=== PATIENT | female | born 1985 | race Caucasian/White ===

== ENCOUNTER 2016-11-05 10:47 | Emergency (ER) | payer OTHER ==
[~2016-11-05] VITALS: Ht 160 cm; Wt 75.9 kg
[2016-11-05 10:57] VITALS: BP 114/75; PULSE 89; RESP 15; O2SAT 99
--- NOTE | 2016-11-05 12:04 | ED.REPORT ---
HPI-General Illness Date of Service Nov 05, 2016 ED Provider: Dr. Nick Gongora MD A 30 year old female presents to the ED complaining of bilateral flank pain that began yesterday. Patient believes her symptoms feel like a "kidney infection". She reports experiencing similar pain during her previous episodes of UTI. Associated symptoms include increased urinary urgency, mild subjective fever and chills. Patient's last menstrual cycle was one month ago and she currently has an IUD. She denies dysuria, nausea, vomiting or abnormal vaginal discharge. Nursing Notes Stated Complaint: LWR BACK PAIN Chief Complaint: Back Pain or Injury Nursing Notes Reviewed: Yes Allergies: Coded Allergies: ciprofloxacin (Verified Adverse Reaction, Unknown, Nausea,Vomiting, ) PT DOES NOT KNOW REACTION Scheduled Sulfamethoxazole/Trimeth 800-160 mg (Bactrim DS) 1 Each Tablet 1 TABLET PO BID General Time Seen by MD: 12:02 Chief Complaint Other (Bilateral Flank Pain) Hx Obtained From: Patient Arrived By: Walk-in Sudden in Onset?: No Onset Occurred: Yesterday Symptom Duration: Since onset Pertinent Negative: Pt denies other symptoms Recent Healthcare: No recent doctor visit, No recent hospitalization Past Medical History Past Medical History Pneumothorax UTI; otherwise healthy Past Surgical History none reported Smoking History Current Every Day Smoker Social History Alcohol Use: Denies alcohol use Drug Use: THC, Other Other Social History: Good social support, Local resident Ambulatory Status Independent Review of Systems Full Review of Systems Constitutional: Reports: Chills, Fever Respiratory: Denies: Shortness of breath Cardiovascular: Denies: Chest pain GI: Denies: Nausea, Vomiting Female: Reports: Flank pain (bilateral ), Urinary urgency, Urination increased Neurologic: Denies: Change LOC Complete sys rev & neg: except as marked. Physical Exam Vital Signs Vital Signs Date Time Temp Pulse Resp B/P Pulse Ox O2 Delivery O2 Flow Rate FiO2 11/05/16 10:57 36.8 89 15 114/75 99 Initial VS: Reviewed Head / Eyes: Atraumatic, Normocephalic, PERRL Neck: Supple, Non-tender, Full range of motion Respiratory: Breath sounds normal, Clear to auscultation, No respiratory distress Cardiovascular: Regular rate & rhythm, Heart sounds normal, Intact distal pulses Abdomen / GI: Soft, Non-tender, No guarding, No rebound, No distention Extremities: Vascular intact, Neuro intact, No swelling, No tenderness Skin: Warm, Dry, No cyanosis Neurologic: Alert, Oriented, Nonfocal Psychiatric: Mood/affect normal, Behavior normal, Normal thought content General/Constitutional: Awake, Alert Back: Atraumatic Flank / Spine / Paraspinal: Positive: Flank tender L, Flank tender R Interpretation & Diagnostics Lab Results Interpretation Test 11/05/16 12:00 Urine Color Yellow (YELLOW) Urine Appearance Hazy (CLEAR,HAZY) Urine pH 6.0 (5.0-8.0) Urine Specific [place] 1.030 (1.003-1.035) Urine Protein Negativemg/dL (NEG,TRACE) Urine Glucose (UA) Negativemg/dL (NEGATIVE) Urine Ketones Negativemg/dL (NEGATIVE) Urine Occult Blood Trace (NEGATIVE) Urine Nitrite Positive (NEGATIVE) Urine Bilirubin Negative (NEGATIVE) Urine Urobilinogen Normalmg/dL (NORMAL) Urine Leukocyte Esterase Negative (NEGATIVE) Urine RBC 0-2/hpf (0-2) Urine WBC 0-5/hpf (0-5) Urine Epithelial Cells Occasional/hpf (NONE-MOD) Urine Crystals None seen (NONE SEEN) Urine Bacteria Many/hpf (NONE-FEW) Urine Hyaline Casts None/lpf (NONE) Urine Granular Casts None seen (NONE SEEN) Urine Waxy Casts None seen (NONE SEEN) Urine Red Blood Cell Casts None seen (NONE SEEN) Urine White Blood Cell Casts None seen (NONE SEEN) Urine Mucus None seen (None Seen) Urine Trichomonas None seen (NONE SEEN) Urine Yeast None (NONE SEEN) Urinalysis Comment None Urine Culture Reflexed Indicated Re-Eval/Medical Decision Med Decision/Clinical Course The patient is an 30 year old female presents to the ED complaining of bilateral flank pain that began yesterday. Patient believes her symptoms feel like a "kidney infection". UA was notable as below: urine hazy in appearance nitrite positive leukocyte esterase negative occasional epithelial many bacteria The patient's overall presentation is most consistent with UTI/pyelonephritis. At this time she is afebrile and nontoxic appearing. She is tolerating PO. Urine test is negative. There are no findings or history suggestive of pelvic inflammatory disease. Her abdominal examination is benign and there are no findings of an acute surgical abdominal process. She was prescribed a 7 day course of Bactrim and her urine was sent for culture. Follow-up and return precautions were reviewed in detail and she was discharged in good condition. Time of Eval: 14:03 Patient Status: Condition improved Re-Evaluation/Progress Note: Patient is rechecked. She is informed of her lab results. She agrees with the treatment plan to discharge. Counseled Regarding: Diagnosis, Lab results, Need for follow-up, When/why to return to ED Discharge & Departure Primary Impression: Urinary tract infection Urinary tract infection type: site unspecified Hematuria presence: without hematuria Qualified Code: N39.0 - Urinary tract infection, site not specified Additional Impressions: Pyelonephritis Bilateral flank pain Disposition: Home Discharge Condition All VS Reviewed: Yes Condition: Stable Patient Instructions: Urinary Tract Infection in Women (ED) Additional Instructions: Thank you for seeking care at emergency room. It is difficult for us to make definitive diagnoses in the ED but we believe that you are experiencing urinary tract infection. Our primary goal today in the ED was to evaluate you for any life-threatening conditions. Your evaluation was reassuring. You will be discharged with a prescription for antibiotics. You should follow-up with your primary doctor in the next week. You should return to the ED immediately if you develop wprse symptoms, fevers, vomiting, cough, shortness of breath, chest pain, lightheadedness, weakness or any other concerning signs or symptoms. Thank you for letting us partake in your care today. Referrals: NOPCP (PCP) [facility] Scribe Attestation Portions of this note were transcribed by Lainey Chacko. I, Dr. Gongora personally performed the history, physical exam and medical decision-making; I reviewed and confirmed the accuracy of the information in the transcribed note. Signed by: Lainey Chacko, 11/05/16, 1410. Nick Gongora MD Nov 05, 2016 12:04 LAINEY CHACKO Nov 05, 2016 13:57
[2016-11-05 13:47] LABS: APPEARANCE,URINE HAZY (CLEAR,HAZY); COLOR,URINE YELLOW (YELLOW); OCCULT BLOOD,URINE TRACE (NEGATIVE); UROBILINOGEN,URINE NORMAL (NORMAL)
[2016-11-05] MEDS ORDERED: SULF1TAB7 PO (14:08)
== END 2016-11-05 14:09 | disposition home or self-care (01) ==
LOC: SED 10:47
DX: N39.0 Urinary tract infection, site not specified (principal); N12 Tubulo-interstitial nephritis, not specified as acute or chronic; B96.20 Unspecified Escherichia coli [E. coli] as the cause of diseases classified elsewhere; F17.200 Nicotine dependence, unspecified, uncomplicated; Z88.1 Allergy status to other antibiotic agents

== ENCOUNTER 2017-01-18 21:47 | Emergency (ER) | payer OTHER ==
[~2017-01-18] VITALS: Ht 160 cm; Wt 79.5 kg
[~2017-01-18 21:47] MED LIST: SULF1TAB7 PO
[2017-01-18 21:50] VITALS: BP 129/82; PULSE 112; RESP 18; O2SAT 97
[2017-01-18 22:46] LABS: APPEARANCE,URINE CLOUDY (CLEAR,HAZY); COLOR,URINE YELLOW (YELLOW); OCCULT BLOOD,URINE TRACE (NEGATIVE)
[2017-01-18 22:47] LABS: UROBILINOGEN,URINE NORMAL (NORMAL)
--- NOTE | 2017-01-18 23:05 | ED.REPORT ---
HPI-General Illness Date of Service Jan 18, 2017 ED Provider: Dr. Georges Clemons M.D. A 31 year old female with a history of UTI, pyelonephritis, migraines, and pneumothorax presents to the ED with bilateral flank pain onset yesterday. The patient also reports fever (38.3 in ED), nausea, and a headache similar to previous migraines. She denies vomiting or other symptoms. The patient has had similar symptoms in the past associated with pyelonephritis. Nursing Notes Stated Complaint: MIGRAINE,BACK PAIN,NAUSEA Chief Complaint: Headache Nursing Notes Reviewed: Yes Allergies: Coded Allergies: ciprofloxacin (Verified Adverse Reaction, Unknown, Nausea,Vomiting, ) PT DOES NOT KNOW REACTION Scheduled Cefuroxime Axetil (Cefuroxime) 500 Mg Tablet 500 MG PO BID Promethazine HCl (Phenergan) 25 Mg Supp.rect 25 MG RC TID Sulfamethoxazole/Trimeth 800-160 mg (Bactrim DS) 1 Each Tablet 1 TABLET PO BID Scheduled PRN Naproxen (Naprosyn) 500 Mg Tablet 500 MG PO BID PRN PRN For Pain Ondansetron ODT (Ondansetron ODT) 8 Mg Tab.rapdis 8 MG PO QID PRN PRN For Nausea General Time Seen by MD: 23:04 Chief Complaint Other (Bilateral Flank Pain) Hx Obtained From: Patient Arrived By: Walk-in Sudden in Onset?: No Onset Occurred: Yesterday Symptom Duration: Since onset Location: : Back (Bilateral Flanks): Head Quality: Painful Severity: Current: Moderate Severity: Maximum: Moderate Associated with: Reports: Fever, Headache, Nausea, Denies: Vomiting Pertinent Negative: Relieved by nothing Recent Healthcare: No recent doctor visit Similar Sx Previous: Yes Past Medical History Past Medical History Pneumothorax UTI, pyelonephritis Migraines Past Surgical History none reported Smoking History Current Every Day Smoker Social History Alcohol Use: Denies alcohol use Drug Use: THC, Other Other Social History: Good social support, Local resident Ambulatory Status Independent Review of Systems + Bilateral flank pain Full Review of Systems Constitutional: Reports: Fever (38.3 in ED) Respiratory: Denies: Non-productive cough, Shortness of breath GI: Reports: Nausea, Denies: Vomiting Neurologic: Reports: Headache Complete sys rev & neg: except as marked. Physical Exam Vital Signs Vital Signs Date Time Temp Pulse Resp B/P Pulse Ox O2 Delivery O2 Flow Rate FiO2 01/19/17 00:55 36.6 69 17 119/67 99 Room Air 01/18/17 21:50 38.3 112 18 129/82 97 Room Air Initial VS: Reviewed Head / Eyes: Atraumatic, Normocephalic ENT: Conjunctiva normal, No scleral icterus Neck: Supple, Full range of motion Skin: Warm, Dry, No cyanosis Psychiatric: Mood/affect normal, Behavior normal, Normal thought content General/Constitutional: Awake, Alert, No acute distress Abdomen: Soft, Non-tender Back: Full range of motion Flank / Spine / Paraspinal: Positive: Flank tender bilateral Neurologic: Oriented X3, Speech NL, No motor deficits, No sensory deficits Interpretation & Diagnostics URINE : Negative URINE DIPSTICK: 1.010 sp gravity 8 pH ++ Leukocyte Esterase Positive Nitrite Trace Protein Normal Glucose Normal Urobilinogen Trace Blood Otherwise Negative Lab Results Interpretation Result Diagram: 01/18/17 2342 01/18/17 2342 Test 01/18/17 22:30 01/18/17 23:42 Urine Color Yellow (YELLOW) Urine Appearance Cloudy (CLEAR,HAZY) Urine pH 7.0 (5.0-8.0) Urine Specific [place] 1.020 (1.003-1.035) Urine Protein Negativemg/dL (NEG,TRACE) Urine Glucose (UA) Negativemg/dL (NEGATIVE) Urine Ketones Negativemg/dL (NEGATIVE) Urine Occult Blood Trace (NEGATIVE) Urine Nitrite Positive (NEGATIVE) Urine Bilirubin Negative (NEGATIVE) Urine Urobilinogen Normalmg/dL (NORMAL) Urine Leukocyte Esterase Trace (NEGATIVE) Urine RBC 0-2/hpf (0-2) Urine WBC >50/hpf (0-5) Urine Epithelial Cells Moderate/hpf (NONE-MOD) Urine Crystals None seen (NONE SEEN) Urine Bacteria Many/hpf (NONE-FEW) Urine Hyaline Casts None/lpf (NONE) Urine Granular Casts None seen (NONE SEEN) Urine Waxy Casts None seen (NONE SEEN) Urine Red Blood Cell Casts None seen (NONE SEEN) Urine White Blood Cell Casts None seen (NONE SEEN) Urine Mucus Present (None Seen) Urine Trichomonas None seen (NONE SEEN) Urine Yeast None (NONE SEEN) Urinalysis Comment None Urine Culture Reflexed Indicated White Blood Count 13.9th/mm3 (3.8-10.1) Red Blood Count 4.32mil/mm3 (3.90-5.20) Hemoglobin 12.8g/dL (12.0-15.6) Hematocrit 38.2% (35.0-46.0) Mean Corpuscular Volume 88.4fL (81-100) Mean Corpuscular Hemoglobin 29.6pg (27.0-35.0) Mean Corpuscular Hemoglobin Concent 33.5% (32.0-37.0) Red Cell Distribution Width 12.8% (12.3-15.4) Platelet Count 291bil/L (150-400) Neutrophils (%) (Auto) 84.0% (40-74) Lymphocytes (%) (Auto) 7.4% (14-46) Monocytes (%) (Auto) 8.1% (4-12) Eosinophils (%) (Auto) 0.2% (0-5) Basophils (%) (Auto) 0.1% (0-3) Sodium Level 135mEq/L (134-144) Potassium Level 4.3mEq/L (3.5-5.2) Chloride Level 98mEq/L (97-108) Carbon Dioxide Level 22mmol/L (18-29) Blood Urea Nitrogen 10mg/dL (6-20) Creatinine 0.55mg/dL (0.57-1.00) Estimat Glomerular Filtration Rate 183mL/min (>59) Glucose Level 135mg/dL (60-99) Calcium Level 8.2mg/dL (8.5-10.1) Magnesium Level 1.9mg/dL (1.6-2.6) Total Bilirubin 0.2mg/dL (0.0-1.2) Aspartate Amino Transf (AST/SGOT) 15U/L (0-50) Alanine Aminotransferase (ALT/SGPT) 17U/L (0-32) Alkaline Phosphatase 60U/L (25-150) Total Protein 6.7g/dL (6.4-8.4) Albumin 4.0g/dL (3.4-5.0) Hold [place] Top Tube Received (Received) Re-Eval/Medical Decision Med Decision/Clinical Course 31-year-old with flank pain and gross urinary tract infection. She has an incidental migraine in the setting of her acute illness. Hydrated here and begun with Rocephin, was Ceftin to follow. Improved after fluids and migraine meds. Discharged in stable condition. Source of Hx: Old records Time of Eval: 00:42 Patient Status: Condition improved Re-Evaluation/Progress Note: Discussed with patient lab results, diagnosis, and plan for discharge. Follow-up and return to the ER instructions given. Patient agrees with plan for care and all questions were addressed. Counseled Regarding: Diagnosis, Lab results, Need for follow-up, When/why to return to ED Discharge & Departure Shift Change Sign-Out Response to Therapy: Improved Primary Impression: Pyelonephritis Additional Impression: Migraine Migraine type: without aura Status migrainosus presence: without status migrainosus Intractability: not intractable Qualified Code: G43.009 - Migraine without aura, not intractable, without status migrainosus Disposition: Home Discharge Condition All VS Reviewed: Yes Condition: Improved Patient Instructions: Acute Pyelonephritis (ED), Migraine Headache (ED) Additional Instructions: Drink plenty of fluids and stay well-hydrated. Ceftin twice daily. Follow-up with your physician in the office. Return if any immediate issues over the weekend, particularly worsening fever or pain despite treatment. Zofran if needed for nausea Phenergan suppository if needed for nausea and headache. Referrals: NOPCP (PCP) [facility] [place] Attestation Portions of this note were transcribed by Adriana Clayton. I, Dr. Clemons, personally performed the history, physical exam, and medical decision-making; I reviewed and confirmed the accuracy of the information in the transcribed note. Signed by: Babs Busch, 01/19/2017, 01:40 copies to: [facility] Georges Clemons MD Jan 18, 2017 23:05 ADRIANA CLAYTON Jan 18, 2017 23:12
[2017-01-18] MEDS ORDERED: 0.9% Sodium Chloride 1,000 ML IV SCH (23:10)
[2017-01-18] MEDS ORDERED: Ondansetron 2 mg/mL 2 mL Inj IVPUSH ONE (23:10)
[2017-01-18] MEDS ORDERED: cefTRIAXone Inj 2,000 MG in Dextrose 5% Minibag Plus 50 ML IV ONE (23:10)
[2017-01-18 23:50] LABS: BASOPHILS % (AUTO) 0.1 % (0-3); EOSINOPHILS % (AUTO) 0.2 % (0-5); MONOCYTES % (AUTO) 8.1 % (4-12); Mean Corpuscular Hemoglobin 29.6 pg (27.0-35.0); Mean Corpuscular Volume 88.4 fL (81-100); Platelet Count 291 bil/L (150-400)
[2017-01-19] MEDS ORDERED: ONDA8TAB10 PO (00:01)
[2017-01-19] MEDS ORDERED: PROM25SU46 RC (00:01)
[2017-01-19 00:20] LABS: Magnesium 1.9 mg/dL (1.6-2.6)
[2017-01-19 00:55] VITALS: BP 119/67; PULSE 69; RESP 17; O2SAT 99
[2017-01-19] MEDS ORDERED: NAPR500T PO (00:56)
[2017-01-19] MEDS ORDERED: CEFU500T61 PO (00:56)
== END 2017-01-19 00:59 | disposition home or self-care (01) ==
LOC: SED 21:47
DX: N10 Acute pyelonephritis (principal); G43.009 Migraine without aura, not intractable, without status migrainosus; B96.20 Unspecified Escherichia coli [E. coli] as the cause of diseases classified elsewhere; F17.200 Nicotine dependence, unspecified, uncomplicated; Z88.1 Allergy status to other antibiotic agents
CPT/HCPCS: 36415; 80053; 81000; 81025; 83735; 85025; 87077; 87086; 87088; 87186; 96361; 96365; 96375; 99285; J0696; J1885; J2405; J7030

== ENCOUNTER 2017-01-19 12:55 | Inpatient (IN) | payer OTHER ==
[~2017-01-19] VITALS: Ht 160 cm; Wt 73.5 kg
[~2017-01-19 12:55] MED LIST changes: +CEFU500T61 PO; +NAPR500T PO; +ONDA8TAB10 PO; +PROM25SU46 RC
[2017-01-19 13:08] VITALS: BP 118/71; PULSE 122; RESP 20; O2SAT 96
[2017-01-19] MEDS ORDERED: Ondansetron 2 mg/mL 2 mL Inj IVPUSH ONE (13:35)
[2017-01-19] MEDS ORDERED: cefTRIAXone Inj 2,000 MG in Dextrose 5% Minibag Plus 50 ML IV ONE (13:35)
--- NOTE | 2017-01-19 13:36 | ED.REPORT ---
HPI-Abd Pain F Under 40 Date of Service Jan 19, 2017 ED Provider: Zuhair Fernandes MD This is a 31 year old female with a history of pyelonephritis and migraines presenting to the emergency department complaining of abdominal pain that began 2 days ago. Associated with bilateral flank pain, nausea, and vomiting. Pt seen in the ED yesterday with similar presentation, received ceftriaxone and discharged with Ceftin. Diagnosed with pyelonephritis and also has positive e.coli cultures. She has had three doses of antibiotics so far. Denies cough, shortness of breath, diarrhea, or constipation at this time. Nursing Notes Stated Complaint: BAD KIDNEY INFECTION,STABBING PAIN IN STOMACH Chief Complaint: Female Abdominal Pain Nursing Notes Reviewed: Yes ([employer] not reconciled) Allergies: Coded Allergies: ciprofloxacin (Verified Adverse Reaction, Unknown, Nausea,Vomiting, ) PT DOES NOT KNOW REACTION Scheduled Cefuroxime Axetil (Cefuroxime) 500 Mg Tablet 500 MG PO BID Promethazine HCl (Phenergan) 25 Mg Supp.rect 25 MG RC TID Sulfamethoxazole/Trimeth 800-160 mg (Bactrim DS) 1 Each Tablet 1 TABLET PO BID Scheduled PRN Naproxen (Naprosyn) 500 Mg Tablet 500 MG PO BID PRN PRN For Pain Ondansetron ODT (Ondansetron ODT) 8 Mg Tab.rapdis 8 MG PO QID PRN PRN For Nausea General Time Seen by MD: 13:32 Chief Complaint Abdominal pain Hx Obtained From: Patient Arrived By: Walk-in Sudden in Onset?: Yes Onset Occurred: 2 days ago Symptom Duration: Since onset Location: : Diffuse Severity: Current: Moderate Pertinent Negative: Pt denies other symptoms Recent Healthcare: Recent doctor visit Similar Sx Previous: No Past Medical History Past Medical History Notes: Seen yesterday in ED dx w/pyelo - received Ceftriaxone, d/c on Ceftin cultures + E. Coli, Sens pending Past Medical History Pneumothorax h/o UTI, pyelonephritis Migraines Past Surgical History none reported Smoking History Current Every Day Smoker Social History Alcohol Use: Denies alcohol use Drug Use: THC, Other Other Social History: Good social support, Local resident Ambulatory Status Independent Review of Systems Constitutional: Reports: Chills, Denies: Fever GI: Reports: Abdominal pain, Nausea, Vomiting, Denies: Diarrhea, Hematemesis, Hematochezia Female: Reports: Flank pain Complete sys rev & neg: except as marked. Physical Exam Initial Vital Signs Vital Signs (First) Date Time Temp Pulse Resp B/P Pulse Ox O2 Delivery O2 Flow Rate FiO2 01/19/17 13:08 38.9 122 20 118/71 96 Room Air Initial VS: Reviewed Head / Eyes: Atraumatic, Normocephalic, PERRL ENT: Mucous membranes moist, Conjunctiva normal, No scleral icterus Neck: Supple, Non-tender, Full range of motion Extremities: Vascular intact, Neuro intact, No swelling, No tenderness Skin: Warm, Dry, No cyanosis Neurologic: Alert, Oriented, Nonfocal Psychiatric: Mood/affect normal, Behavior normal, Normal thought content General/Constitutional: Awake, Alert Respiratory / Chest: Breath sounds NL, Breath sounds = bilat, No respiratory distress, No rales, No rhonchi, No wheezing Tender Cardiovascular: Heart rate NL, Regular rhythm, Heart sounds NL, Peripheral circulation NL Tenderness/Guarding/Rebound: Positive: Tender diffuse Back: Full range of motion mangle tender cloth to palpation Interpretation & Diagnostics CT KUB IMPRESSION: 1. No renal stone or hydronephrosis. 2. Mild left perinephric stranding. 3. Moderate amount stool in colon. 4. Trace amount of free fluid is within physiocological limits. Dictated by: Yasmeen Baez M.D. on 01/19/2017 at 14:19 Approved by: Yasmeen Baez M.D. on 01/19/2017 at 14:25 Lab Results Interpretation Result Diagram: 01/19/17 1328 01/19/17 1328 Test 01/19/17 13:28 White Blood Count 20.9th/mm3 (3.8-10.1) Red Blood Count 4.58mil/mm3 (3.90-5.20) Hemoglobin 13.5g/dL (12.0-15.6) Hematocrit 40.6% (35.0-46.0) Mean Corpuscular Volume 88.6fL (81-100) Mean Corpuscular Hemoglobin 29.5pg (27.0-35.0) Mean Corpuscular Hemoglobin Concent 33.3% (32.0-37.0) Red Cell Distribution Width 13.0% (12.3-15.4) Platelet Count 290bil/L (150-400) Neutrophils (%) (Auto) 87.8% (40-74) Lymphocytes (%) (Auto) 4.3% (14-46) Monocytes (%) (Auto) 7.5% (4-12) Eosinophils (%) (Auto) 0% (0-5) Basophils (%) (Auto) 0.1% (0-3) Hold [place] Top Tube Received (Received) Sodium Level 131mEq/L (134-144) Potassium Level 3.9mEq/L (3.5-5.2) Chloride Level 94mEq/L (97-108) Carbon Dioxide Level 20mmol/L (18-29) Blood Urea Nitrogen 10mg/dL (6-20) Creatinine 0.61mg/dL (0.57-1.00) Estimat Glomerular Filtration Rate 163mL/min (>59) Glucose Level 143mg/dL (60-99) Lactic Acid Level 0.9mmol/L (0.4-2.0) Calcium Level 8.5mg/dL (8.5-10.1) Total Bilirubin 0.5mg/dL (0.0-1.2) Aspartate Amino Transf (AST/SGOT) 16U/L (0-50) Alanine Aminotransferase (ALT/SGPT) 18U/L (0-32) Alkaline Phosphatase 71U/L (25-150) Total Protein 7.3g/dL (6.4-8.4) Albumin 3.9g/dL (3.4-5.0) Hold [place] Top Tube Received (Received) Hold [place] Top Tube Received (Received) Lab Results Interpretation: CBC positive leukocytosis CMP normal Urine culture from yesterday positive greater 100,000 Escherichia coli, sensitivities pending Urine yesterday negative Re-Eval/Medical Decision Med Decision/Clinical Course This is a 31-year-old female seen yesterday in the emergency department with urinary symptoms concerning for pyelonephritis, dose of ceftriaxone discharge and Ceftin he now presents febrile, with worsening symptoms, nausea vomiting. Patient appears ill, tachycardic-but not hypotensive. She is diffuse pain everywhere does have bilateral CVA tenderness, reports she has pain reading around the abdomen which is a little bit different than her usual Jose. Cultures are positive for greater than 100,000 Escherichia coli, but sensitivities have not yet returned. Patient is taking Naprosyn just prior to arrival. Patient had IV placed, given aggressive fluids, repeat blood cultures are drawn and the patient overdosed on ceftriaxone. Given his been less than 24 hours, I do not think that we can count this is a true antibiotic failure yet-and culture should be returning shortly. Furthermore the patient's allergic to fluoroquinolones. To evaluate for the possibility of a stone given the rapid progression of symptoms and the atypical component of the pain-a CT KUB was obtained and was negative for stones, perinephric stranding consistent with Jose is present. The patient is being admitted for continued therapy. Source of Hx: Old records Re-Evaluation/Progress : Time of Eval: 14:08 Re-Evaluation/Progress Note: Plan for admission, all questions addressed Consultation : Referral / Consult Name: Sasha Barber MD Consulted With: Hospitalist Call Returned at: 14:08 Nursing Care Attendant: Accepts admit Differential Diagnosis: Positive: Pyelonephritis, Urinary tract infection, Negative: Abscess, Ectopic preg ruptured, Ectopic , Endometriosis, Esophageal rupture, Stab wound abdomen Counseled Regarding: Diagnosis, Lab results, Need for follow-up Discharge & Departure Primary Impression: Pyelonephritis Additional Impressions: Escherichia coli urinary tract infection Nausea & vomiting Vomiting type: unspecified Vomiting Intractability: unspecified Qualified Code: R11.2 - Nausea with vomiting, unspecified Disposition: ADMITTED TO HOSPITAL Discharge Condition All VS Reviewed: Yes Condition: Stable Referrals: NOPCP (PCP) Scribe Attestation Portions of this note were transcribed by Mike Pereira. I, Dr. Fernandes personally performed the history, physical exam and medical decision-making; I reviewed and confirmed the accuracy of the information in the transcribed note. Signed by: Mike Pereira. 01/19/2017, 15:00. Zuhair Fernandes MD Jan 19, 2017 13:36 MIKE PEREIRA Jan 19, 2017 13:44
[2017-01-19] MEDS ORDERED: 0.9% Sodium Chloride 1,000 ML IV ONE ×2 (13:40)
[2017-01-19 13:47] LABS: BASOPHILS % (AUTO) 0.1 % (0-3); EOSINOPHILS % (AUTO) 0 % (0-5); MONOCYTES % (AUTO) 7.5 % (4-12); Mean Corpuscular Hemoglobin 29.5 pg (27.0-35.0); Mean Corpuscular Volume 88.6 fL (81-100); NEUTROPHILS % (AUTO) 87.8 % (40-74); Platelet Count 290 bil/L (150-400)
[2017-01-19] MEDS: HYDROmorphone 0.5 mg/0.5 mL iSecure Syringe IVPUSH PRN ×2 (13:48→20:31)
--- NOTE | 2017-01-19 14:27 | DRSVH ---
PROCEDURE: CT KUB ([id number]) INDICATIONS: Flank pain, sepsis, abd pain ?stone TECHNIQUE: Noncontrast 5 mm thick sections acquired from the diaphragms to the symphysis. 5 mm thick coronal an d sagittal reformats were then performed. For radiation dose reduction, the following was used: aut omated exposure control, adjustment of mA and/or kV according to patient size. COMPARISON: [facility], CT, CT ABD PELVIS W CON, 01/13/2016, 19:45. FINDINGS: Image quality: Excellent. Lung bases: Right basilar dependent atelectasis. Heart size is normal. Urinary system: Both kidneys are normal in size. No kidney stones. No hydronephrosis. Mild left pe rinephric fat stranding. Both ureters appear non-dilated throughout their expected courses. Bladder wall thickness is normal; no calcified bladder stones. Other solid organs: Liver and spleen are normal in size. Gallbladder is normal. Pancreas is normal in contours. No adrenal nodules. Peritoneum and bowel: Unenhanced bowel loops demonstrate normal wall thickness and caliber. Moderat e amount of stool in colon. No free fluid or air. Nodes and vessels: No retroperitoneal or mesenteric adenopathy by size criteria. Aorta and inferior vena cava are normal in caliber. Abdominal wall: No ventral hernias. Pelvis: No free pelvic fluid. No inguinal hernias or adenopathy. There is an IUD in uterus. Ovarie s are normal. A trace amount of free fluid in cul-de-sac. Bones: No suspicious bony lesions. No vertebral body compression fractures. IMPRESSION: 1. No renal stone or hydronephrosis. 2. Mild left perinephric stranding. 3. Moderate amount stool in colon. 4. Trace amount of free fluid is within physiocological limits. Dictated by: Yasmeen Baez M.D. on 01/19/2017 at 14:19 Approved by: Yasmeen Baez M.D. on 01/19/2017 at 14:25
[2017-01-19] MEDS ORDERED: 0.9% Sodium Chloride 1,000 ML IV SCH (15:14)
[2017-01-19] MEDS ORDERED: Ondansetron 2 mg/mL 2 mL Inj IVPUSH PRN ×3 (15:15→17:30)
[2017-01-19] MEDS ORDERED: Alum-Mag Hydrox-Simeth 30 mL Suspension PO PRN ×2 (15:15→17:30)
[2017-01-19] MEDS ORDERED: HYDROmorphone 1 mg/mL Inj IVPUSH PRN (15:15)
--- NOTE | 2017-01-19 15:50 | NUR ---
Admit pt comes from ER with bilateral stabbing pain in low abd 5/10. Pt resting and quiet but easily aroused. Moved on own to bed from [facility]. IV patent and in use. A&OX4. Care continues
[2017-01-19 16:20] VITALS: BP 92/55; PULSE 82; RESP 19; O2SAT 96
[2017-01-19] MEDS ORDERED: Polyethylene Glycol (PEG) 17 Gm Powder PO PRN (17:30)
[2017-01-19] MEDS ORDERED: Ondansetron 8 mg ODT Tablet PO PRN (17:40)
--- NOTE | 2017-01-19 17:47 | PCM.CHPMED ---
Subjective Date of Service: Jan 19, 2017 Primary Physician: Admitting Physician: Sasha Barber MD Primary Care Physician: August Attending Physician: Sasha Barber MD Admit Status: From the Emergency Department Chief Complaint: Chief Complaint: abd pain History of Present Illness: Patient is quite drowsy from narcotics and only arouses to give brief one or 2 word answers so difficult to obtain history. Her boyfriend who has lived with her for 2 years is here. He is not a good historian but says he thinks maybe about 2 days ago she began to have some headache and abdominal pain as well as back pain. She came to the emergency department yesterday and was given ceftriaxone and then prescribed some oral cephalosporin which she has taken 2 doses. Urinalysis was obtained at that visit and urine culture is in progress, currently showing gram-negative bacillus which is probably Escherichia coli. She but noted fever last evening and her symptoms worsen. Boyfriend States she was having dry heaves . She came to the emergency department where she was found to be febrile, tachycardic, and to have a leukocytosis Review of Systems: Difficult to obtain due to her drowsiness no apparent problems except as above PMH Past Medical History She had a "collapsed lung" after a fall which she says required ICU care and chest tube Frequent urinary tract infections, including pyelonephritis according to her, which has required past hospitalization Surgical History None Home Medications None prior to being started yesterday on a cephalosporin Allergies: Coded Allergies: ciprofloxacin (Verified Adverse Reaction, Unknown, Nausea,Vomiting, ) PT DOES NOT KNOW REACTION Family History Family History Parents are alive and well Social History Hx Alcohol Use: NoHx Substance Use: Yes (marijuana few times a week)Hx Tobacco Use: Yes (a half to 1 pack per day) Smoking Status: Current Every Day Smoker Additional Information unemployed, 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 Exam Vital Signs Vital Sign - Last Date Time Temp Pulse Resp B/P Pulse Ox O2 Delivery O2 Flow Rate FiO2 01/19/17 16:20 36.6 82 19 92/55 96 Room Air General: Other (drowsy from narcotics, arouses to voice but just says a word or 2 then goes back to sleep) Head: Normal Eyes: PERRLA Mouth: Mouth Normal Neck: Supple Chest & Lungs: Clear to auscultation & percussion Cardiovascular: Regular Rate/Rhythm, No Murmurs/Rubs/Gallops Abdomen: Non-tender, Normoactive bowel tones, Soft Genitourinary: Other (mild bilateral CVA tenderness) Neurological: Grossly Neurologically Intact Lab and Diagnostics Result Diagram: 01/19/17 1328 01/19/17 1328 Assessment & Plan Assessment # Pyelonephritis, urine culture from yesterday showing probable Escherichia coli , today presents with fever, tachycardia, leukocytosis but normal lactic acid andnormal blood pressure although subsequently some decreased probably from narcotics - Ceftriaxone pending culture results, urine culture is from the day prior to admission - IVF with normal saline - Medication for pain and nausea # Hyponatremia of unclear etiology, mild - IVF with normal saline - repeat lab in am Problems: Sasha Barber MD Jan 19, 2017 17:47
[2017-01-19] MEDS: 0.9% Sodium Chloride 1,000 ML IV SCH (17:50)
[2017-01-19 19:33] VITALS: BP 95/58; PULSE 84; RESP 18; O2SAT 100
[2017-01-19] MEDS: Promethazine 25 mg Rectal Suppository RECTAL SCH (20:21)
[2017-01-19 23:42] VITALS: BP 92/58; PULSE 86; RESP 20; O2SAT 99
[2017-01-19] MEDS: HYDROcodone-APAP 5-325 mg Tablet PO PRN (23:49)
[2017-01-20] MEDS: 0.9% Sodium Chloride 1,000 ML IV SCH ×4 (00:14→22:10)
[2017-01-20] MEDS: HYDROmorphone 0.5 mg/0.5 mL iSecure Syringe IVPUSH PRN (02:58)
[2017-01-20 05:27] VITALS: BP 111/75; PULSE 89; RESP 20; O2SAT 94
--- NOTE | 2017-01-20 05:45 | NUR ---
Pain: pt. tearful w/ abdominal pain, especially while getting up to bathroom, medicated w/ iv dilaudid, effective. pt. has not had any nausea and has been afebrile.
[2017-01-20 06:39] LABS: Mean Corpuscular Hemoglobin 29.9 pg (27.0-35.0); Mean Corpuscular Volume 91.5 fL (81-100)
[2017-01-20] MEDS: HYDROcodone-APAP 5-325 mg Tablet PO PRN ×4 (06:43→23:56)
[2017-01-20 08:12] VITALS: BP 110/68; PULSE 99; RESP 16; O2SAT 96
[2017-01-20] MEDS: Promethazine 25 mg Rectal Suppository RECTAL SCH ×3 (08:30→20:10)
[2017-01-20] MEDS ORDERED: oxyCODONE-Acetamin 5-325 mg Tablet PO PRN (08:50)
--- NOTE | 2017-01-20 08:57 | NUR ---
Home medications Pt had her own home medications in the room. Medications taken from pt and locked in pt's medication drawer: Promethazine suppositories 25 mg Ondansetron ODT 8 mg Naproxen 500mg Cefuroxime 500 mg
--- NOTE | 2017-01-20 09:28 | NUR ---
Social Work Note: Screen Note Data& Assessment: EMR reviewed. Patient is a 31 year old female admitted on 01/09/17 for E Coli and Pyelonephritis. Pt has [facility] for insurance coverage and sees no one for primary care. Pt lives in [place] and is independent at baseline. Pt is currently SBA in her room. No discharge needs identified at this time. SW to continue to follow if any needs arise. Plan: Anticipated discharge home via POV when medically ready. No discharge needs identified at this time. SW to continue to follow if any needs arise. Raeann George, LISA, ACM
[2017-01-20] MEDS ORDERED: cefTRIAXone Inj 1,000 MG in Dextrose 5% Minibag Plus 50 ML IV SCH (12:00)
--- NOTE | 2017-01-20 14:02 | DRSVH ---
PROCEDURE: X-RAY CHEST ONE VIEW, PORTABLE ([id number]) INDICATIONS: pyelonephritis TECHNIQUE: One view of the chest was acquired. COMPARISON: [facility], CR, ABD ACUTE SERIES, 09/20/2010, 21:01. [facility], CR, CHEST 1VW (PORTABLE), 08/22/2010, 15:39. FINDINGS: Surgical changes and devices: None. Lungs and pleura: No pleural effusions or pneumothorax. Bibasilar airspace opacities. Mediastinum: Mediastinal contours appear normal. Heart size is normal. Bones and chest wall: No suspicious bony lesions. Overlying soft tissues appear unremarkable. IMPRESSION: Bibasilar atelectasis versus aspiration or pneumonia. Correlate clinically. Dictated by: Olvin Hale RRA Interpreted: Lisa Escobar MD on 01/20/2017 at 13:58 Transcribed by: LINDA on 01/20/2017 at 13:59 Approved by: Lisa Escobar MD, PhD on 01/20/2017 at 16:34
--- NOTE | 2017-01-20 15:14 | PCM.PNMED ---
Subjective Date of Service Jan 20, 2017 Subjective Continues to have left flank pain. Afebrile. Complaints of headache. Exam Vital Signs Vital Sign - Last Date Time Temp Pulse Resp B/P Pulse Ox O2 Delivery O2 Flow Rate FiO2 01/20/17 08:12 37.2 99 16 110/68 96 Room Air Intake and Output 01/19/17 01/19/17 01/20/17 Cumulative From/Thru 15:00 23:00 07:00 01/19/17 13:08 - 01/20/17 06:07 Intake Total 1000 ml 1300 ml 780 ml 3080 ml Output Total 600 ml 874 ml 1474 ml Balance 1000 ml 700 ml -94 ml 1606 ml Intake Oral 300 ml 780 ml 1080 ml IV Total 1000 ml 1000 ml 2000 ml Output Urine Total 600 ml 874 ml 1474 ml # Bowel Movements 0 0 Exam General: Alert and oriented 3 Head: Normal Eyes: PERRLA Mouth: Mouth Normal Neck: Supple Chest & Lungs: Clear to auscultation & percussion Cardiovascular: Regular Rate/Rhythm, No Murmurs/Rubs/Gallops Abdomen: Non-tender, Normoactive bowel tones, Soft Genitourinary: Other ( bilateral CVA tenderness ,L>R) Neurological: Grossly Neurologically Intact IVs and Medications Medications Reviewed: Medications were reviewed in detail Lab and Diagnostics Result Diagram: 01/20/1760401/20/17604 Microbiology Microbiology LIBRADO CULT URINE Final 01/20/17-0707 Organism 1 ESCHERICHIA COLI U COLONY COUNT/QUANTITY >100,000 CFU/ml Cefazolin-predicts results for the oral agents, cefaclor,cefdinir, cefpodoximen, cefprozil, cefuroximne axetil, cephalexin and loracarbed when used for therapy of uncomplicated UTI's due to E. coli, K. pneumoniae, and Proteus mirabilis. Cefpodoxime, cefdinir and cefuroxime axetil may be tested individually because some isolates may be susceptible to these agents while testing resistant to cefazolin. (CLSI [id number] pg 53) 1. ESCHERICHIA COLI M.I.C Interp --------- ------ * AMOXICILLIN/CLAVULATE 8 S * AMPICILLIN >=32 R * CEFAZOLIN (CEPHALOSPORIN) UTI 4 S * CEFEPIME <=1 S * CEFTRIAXONE <=1 S * CEFUROXIME SODIUM 4 S * CIPROFLOXACIN <=0.25 S * ERTAPENEM <=0.5 S * GENTAMICIN <=1 S * IMIPENEM <=1 S * LEVOFLOXACIN <=0.12 S * NITROFURANTOIN <=16 S * TETRACYCLINE <=1 S * TOBRAMYCIN <=1 S * TRIMETHOPRIM/SULFAMETHOXAZOLE >=320 R X-Rays, CTs and MRIs PROCEDURE: CT KUB ([id number]) INDICATIONS: Flank pain, sepsis, abd pain ?stone TECHNIQUE: Noncontrast 5 mm thick sections acquired from the diaphragms to the symphysis. 5 mm thick coronal and sagittal reformats were then performed. For radiation dose reduction, the following was used: automated exposure control, adjustment of mA and/or kV according to patient size. COMPARISON: [facility], CT, CT ABD PELVIS W CON, 01/13/2016, 19:45. FINDINGS: Image quality: Excellent. Lung bases: Right basilar dependent atelectasis. Heart size is normal. Urinary system: Both kidneys are normal in size. No kidney stones. No hydronephrosis. Mild left perinephric fat stranding. Both ureters appear non- dilated throughout their expected courses. Bladder wall thickness is normal; no calcified bladder stones. Other solid organs: Liver and spleen are normal in size. Gallbladder is normal. Pancreas is normal in contours. No adrenal nodules. Peritoneum and bowel: Unenhanced bowel loops demonstrate normal wall thickness and caliber. Moderate amount of stool in colon. No free fluid or air. Nodes and vessels: No retroperitoneal or mesenteric adenopathy by size criteria. Aorta and inferior vena cava are normal in caliber. Abdominal wall: No ventral hernias. Pelvis: No free pelvic fluid. No inguinal hernias or adenopathy. There is an IUD in uterus. Ovaries are normal. A trace amount of free fluid in cul-de-sac. Bones: No suspicious bony lesions. No vertebral body compression fractures. IMPRESSION: 1. No renal stone or hydronephrosis. 2. Mild left perinephric stranding. 3. Moderate amount stool in colon. 4. Trace amount of free fluid is within physiocological limits. Dictated by: Yasmeen Baez M.D. on 01/19/2017 at 14:19 PROCEDURE: X-RAY CHEST ONE VIEW, PORTABLE ([id number]) INDICATIONS: pyelonephritis TECHNIQUE: One view of the chest was acquired. COMPARISON: [facility], CR, ABD ACUTE SERIES, 09/20/2010, 21:01. [facility], CR, CHEST 1VW (PORTABLE), 08/22/2010, 15:39. FINDINGS: Surgical changes and devices: None. Lungs and pleura: No pleural effusions or pneumothorax. Bibasilar airspace opacities. Mediastinum: Mediastinal contours appear normal. Heart size is normal. Bones and chest wall: No suspicious bony lesions. Overlying soft tissues appear unremarkable. IMPRESSION: Bibasilar atelectasis versus aspiration or pneumonia. Correlate clinically. Dictated by: Olvin Hale RRMisael Interpreted: Lisa Escobar MD on 01/20/2017 at 13:58 Assessment & Plan # Left Pyelonephritis, acute,poa -failed outpatient treatment -urine culture showing Escherichia coli, today presents with fever, tachycardia, leukocytosis but normal lactic acid and normal blood pressure - Continue Ceftriaxone . Blood cultures sent after antibiotics NGTD - IVF with normal saline - Medication for pain and nausea # Hyponatremia, resolved -Due to dehydration - Continue IVF with normal saline - repeat lab in am Disposition: Discharge in 1-2 days. VTE Mechanical Devices: Intermittant Pneumatic CD Leno Cordova MD Jan 20, 2017 15:14
[2017-01-20 17:47] VITALS: BP 128/79; PULSE 104; RESP 20; O2SAT 100
--- NOTE | 2017-01-20 17:56 | NUR ---
Pain / nausea Pt has remained in bed all shift except for trips to the bathroom. Pt c/o persistent left flank pain and headache all day today. States she gets no relief from [place] (2 tabs) and felt only a little better after 1 mg IVP morphine. Asked pt if there is another medication she takes to relieve her pain, but she did not know of anything. Pt also c/o intermittent nausea. Administered PO Zofran which relieves her nausea for an hour or two. Care continues.
[2017-01-20 19:34] VITALS: BP 109/67; PULSE 101; RESP 20; O2SAT 100
[2017-01-21] MEDS: 0.9% Sodium Chloride 1,000 ML IV SCH (02:48)
--- NOTE | 2017-01-21 03:58 | NUR ---
Pain pt continues to complain of L flank pain however her major complaint is a MA. she says she has chronic MA and has not figured out what causes them or what makes them better. she reports only mild relief from PO norco and IV morphine. neuros are otherwise normal. pt up to the bathroom independently with good balance and no dizziness. She has denied nausea this shift. care continues.
[2017-01-21] MEDS: HYDROcodone-APAP 5-325 mg Tablet PO PRN ×3 (04:19→11:39)
[2017-01-21 06:01] VITALS: BP 93/58; PULSE 72; RESP 20; O2SAT 96
[2017-01-21] MEDS: Promethazine 25 mg Rectal Suppository RECTAL SCH (08:07)
[2017-01-21 08:19] LABS: BASOPHILS % (AUTO) 0.2 % (0-3); EOSINOPHILS % (AUTO) 1.2 % (0-5); MONOCYTES % (AUTO) 8.1 % (4-12); Mean Corpuscular Hemoglobin 29.3 pg (27.0-35.0); Mean Corpuscular Volume 91.1 fL (81-100); NEUTROPHILS % (AUTO) 75.3 % (40-74); Platelet Count 205 bil/L (150-400)
[2017-01-21 08:52] LABS: Magnesium 1.9 mg/dL (1.6-2.6)
--- NOTE | 2017-01-21 11:14 | PCM.DIMED ---
Discharge Instructions Date of Service Jan 21, 2017 Dates of Hospitalization Jan 19, 2017 at 14:30 Discharge Diagnosis Discharge Diagnosis # Left Pyelonephritis, acute,poa -failed outpatient treatment # Hyponatremia, resolved # chronic migraine Test Results CT KUB Mild left perinephric stranding. Diet No restrictions Activity No restrictions Call your provider Fever or Chills, Shortness of breath, Bleeding, Chest pain, Vomitting, Excessive diarrhea, Weakness (unilateral) Patient Instructions You were hospitalized due to left pyelonephritis/kidney infection.You has been treated with IV antibiotics and IV fluids. Please continue levofloxacin 250 mg by mouth daily for 6 more days. Follow-up plan Please follow-up with PCP in 1-2 week. Please call [facility] residency clinic at [phone] for appointment. Please follow-up with PCP for migraine. Follow-up Provider: [facility] Residency Clinic Follow-up with PCP in: 2 weeks Leno Cordova MD Jan 21, 2017 11:14
[2017-01-21] MEDS ORDERED: AMOX-366 PO (11:17)
[2017-01-21] MEDS ORDERED: BUTA1TAB52 PO (11:17)
--- NOTE | 2017-01-21 11:27 | PCM.DC.MED ---
Discharge Summary Date of Service Jan 21, 2017 Dates of Hospitalization Date of Hospital Admission Jan 19, 2017 at 14:30 Date of Discharge: Jan 21, 2017 Providers: Admitting Physician: Sasha Barber MD Primary Care Physician: August Attending Physician: Sasha Barber MD Diagnosis at Time of Discharge Diagnosis at Time of Discharge # Left Pyelonephritis, acute,poa -failed outpatient treatment # Hyponatremia, resolved # chronic migraine Consultations none Procedures XRay, CTs & MRIs PROCEDURE: CT KUB ([id number]) INDICATIONS: Flank pain, sepsis, abd pain ?stone TECHNIQUE: Noncontrast 5 mm thick sections acquired from the diaphragms to the symphysis. 5 mm thick coronal and sagittal reformats were then performed. For radiation dose reduction, the following was used: automated exposure control, adjustment of mA and/or kV according to patient size. COMPARISON: [facility], CT, CT ABD PELVIS W CON, 01/13/2016, 19:45. FINDINGS: Image quality: Excellent. Lung bases: Right basilar dependent atelectasis. Heart size is normal. Urinary system: Both kidneys are normal in size. No kidney stones. No hydronephrosis. Mild left perinephric fat stranding. Both ureters appear non- dilated throughout their expected courses. Bladder wall thickness is normal; no calcified bladder stones. Other solid organs: Liver and spleen are normal in size. Gallbladder is normal. Pancreas is normal in contours. No adrenal nodules. Peritoneum and bowel: Unenhanced bowel loops demonstrate normal wall thickness and caliber. Moderate amount of stool in colon. No free fluid or air. Nodes and vessels: No retroperitoneal or mesenteric adenopathy by size criteria. Aorta and inferior vena cava are normal in caliber. Abdominal wall: No ventral hernias. Pelvis: No free pelvic fluid. No inguinal hernias or adenopathy. There is an IUD in uterus. Ovaries are normal. A trace amount of free fluid in cul-de-sac. Bones: No suspicious bony lesions. No vertebral body compression fractures. IMPRESSION: 1. No renal stone or hydronephrosis. 2. Mild left perinephric stranding. 3. Moderate amount stool in colon. 4. Trace amount of free fluid is within physiocological limits. Dictated by: Yasmeen Baez M.D. on 01/19/2017 at 14:19 PROCEDURE: X-RAY CHEST ONE VIEW, PORTABLE ([id number]) INDICATIONS: pyelonephritis TECHNIQUE: One view of the chest was acquired. COMPARISON: [facility], CR, ABD ACUTE SERIES, 09/20/2010, 21:01. [facility], CR, CHEST 1VW (PORTABLE), 08/22/2010, 15:39. FINDINGS: Surgical changes and devices: None. Lungs and pleura: No pleural effusions or pneumothorax. Bibasilar airspace opacities. Mediastinum: Mediastinal contours appear normal. Heart size is normal. Bones and chest wall: No suspicious bony lesions. Overlying soft tissues appear unremarkable. IMPRESSION: Bibasilar atelectasis versus aspiration or pneumonia. Correlate clinically. Dictated by: Olvin BAH Interpreted: Lisa Escobar MD on 01/20/2017 at 13:58 Brief History per HPI by Dr Barber on 01/19/17 Patient is quite drowsy from narcotics and only arouses to give brief one or 2 word answers so difficult to obtain history. Her boyfriend who has lived with her for 2 years is here. He is not a good historian but says he thinks maybe about 2 days ago she began to have some headache and abdominal pain as well as back pain. She came to the emergency department yesterday and was given ceftriaxone and then prescribed some oral cephalosporin which she has taken 2 doses. Urinalysis was obtained at that visit and urine culture is in progress, currently showing gram-negative bacillus which is probably Escherichia coli. She but noted fever last evening and her symptoms worsen. Boyfriend States she was having dry heaves . She came to the emergency department where she was found to be febrile, tachycardic, and to have a leukocytosis Hospital Course # Left Pyelonephritis, acute,poa -failed outpatient treatment -urine culture showing Escherichia coli, presents with fever, tachycardia, leukocytosis but normal lactic acid and normal blood pressure - Treated with Ceftriaxone and IV fluids . Blood cultures sent after antibiotics NGTD -We will discharge on Augmentin for 6 more days. -Advised to follow-up with [facility] residency clinic. Phone number given. # Hyponatremia, resolved -Due to dehydration -Treated with IVF with normal saline #Chronic migraine -Patient states she does not take medications for migraine. She sleeps and she gets migraine attack -Fioricet prescribed. -Advised to get new PCP at [facility] residency clinic. Disposition: Discharged home Condition on discharge stable Exam Vital Signs (Last) Date Time Temp Pulse Resp B/P Pulse Ox O2 Delivery O2 Flow Rate FiO2 01/21/17 06:01 36.6 72 20 93/58 96 Room Air Exam General: Alert and oriented 3 Head: Normal Eyes: PERRLA Mouth: Mouth Normal Neck: Supple Chest & Lungs: Clear to auscultation & percussion Cardiovascular: Regular Rate/Rhythm, No Murmurs/Rubs/Gallops Abdomen: Non-tender, Normoactive bowel tones, Soft Genitourinary: Other ( bilateral CVA tenderness ,L>R) Neurological: Grossly Neurologically Intact Test 01/19/17 13:28 01/21/17 08:10 Hold Purple Top Tube Received (Received) Lactic Acid Level 0.9mmol/L (0.4-2.0) Hold [place] Top Tube Received (Received) Hold [place] Top Tube Received (Received) White Blood Count 11.1th/mm3 (3.8-10.1) Red Blood Count 3.72mil/mm3 (3.90-5.20) Hemoglobin 10.9g/dL (12.0-15.6) Hematocrit 33.9% (35.0-46.0) Mean Corpuscular Volume 91.1fL (81-100) Mean Corpuscular Hemoglobin 29.3pg (27.0-35.0) Mean Corpuscular Hemoglobin Concent 32.2% (32.0-37.0) Red Cell Distribution Width 12.7% (12.3-15.4) Platelet Count 205bil/L (150-400) Neutrophils (%) (Auto) 75.3% (40-74) Lymphocytes (%) (Auto) 15.0% (14-46) Monocytes (%) (Auto) 8.1% (4-12) Eosinophils (%) (Auto) 1.2% (0-5) Basophils (%) (Auto) 0.2% (0-3) Sodium Level 138mEq/L (134-144) Potassium Level 4.2mEq/L (3.5-5.2) Chloride Level 105mEq/L (97-108) Carbon Dioxide Level 21mmol/L (18-29) Blood Urea Nitrogen 5mg/dL (6-20) Creatinine 0.46mg/dL (0.57-1.00) Estimat Glomerular Filtration Rate 225mL/min (>59) Glucose Level 135mg/dL (60-99) Calcium Level 7.4mg/dL (8.5-10.1) Phosphorus Level 2.0mg/dL (2.5-4.9) Magnesium Level 1.9mg/dL (1.6-2.6) Total Bilirubin 0.3mg/dL (0.0-1.2) Aspartate Amino Transf (AST/SGOT) 16U/L (0-50) Alanine Aminotransferase (ALT/SGPT) 16U/L (0-32) Alkaline Phosphatase 70U/L (25-150) Total Protein 5.1g/dL (6.4-8.4) Albumin 2.8g/dL (3.4-5.0) Procalcitonin 0.16ng/mL (0.00-0.08) Microbiology Results Microbiology LIBRADO CULT URINE Final 01/20/17-0707 Organism 1 ESCHERICHIA COLI U COLONY COUNT/QUANTITY >100,000 CFU/ml Cefazolin-predicts results for the oral agents, cefaclor,cefdinir, cefpodoximen, cefprozil, cefuroximne axetil, cephalexin and loracarbed when used for therapy of uncomplicated UTI's due to E. coli, K. pneumoniae, and Proteus mirabilis. Cefpodoxime, cefdinir and cefuroxime axetil may be tested individually because some isolates may be susceptible to these agents while testing resistant to cefazolin. (CLSI [id number] pg 53) 1. ESCHERICHIA COLI M.I.C Interp --------- ------ * AMOXICILLIN/CLAVULATE 8 S * AMPICILLIN >=32 R * CEFAZOLIN (CEPHALOSPORIN) UTI 4 S * CEFEPIME <=1 S * CEFTRIAXONE <=1 S * CEFUROXIME SODIUM 4 S * CIPROFLOXACIN <=0.25 S * ERTAPENEM <=0.5 S * GENTAMICIN <=1 S * IMIPENEM <=1 S * LEVOFLOXACIN <=0.12 S * NITROFURANTOIN <=16 S * TETRACYCLINE <=1 S * TOBRAMYCIN <=1 S * TRIMETHOPRIM/SULFAMETHOXAZOLE >=320 R Discharge Medications Discharge Medications Amoxicillin/Clav K 875-125 mg (Augmentin 875-125 mg) 1 Each Tablet 1 TABLET PO BID Prescribed by: LENO CODROVA MD Promethazine HCl (Phenergan) 25 Mg Supp.rect 25 MG RC TID Prescribed by: SHARON FARR MD As needed Butalbital/Acetaminophen 50-325 mg (Butalbital/Acetaminophen 50-325 mg) 1 Each Tablet 1 TABLET PO Q8H PRN PRN For Headache Prescribed by: LENO CORDOVA MD Naproxen (Naprosyn) 500 Mg Tablet 500 MG PO BID PRN PRN For Pain Prescribed by: SHARON FARR MD Ondansetron ODT (Ondansetron ODT) 8 Mg Tab.rapdis 8 MG PO QID PRN PRN For Nausea Prescribed by: SHARON FARR MD Followup Plan Disposition: Home Follow-up plan Please follow-up with PCP in 1-2 week. Please call [facility] residency clinic at [phone] for appointment. Please follow-up with PCP for migraine. Discharge Diet: No restrictions Discharge Activity: No restrictions Patient Instructions You were hospitalized due to left pyelonephritis/kidney infection.You has been treated with IV antibiotics and IV fluids. Please continue levofloxacin 250 mg by mouth daily for 6 more days. Follow-up Provider: [facility] Residency Clinic Follow-up with PCP in: 2 weeks Time spent 35 minutes coordinating discharge copies to: [facility] Residency Clinic Leno Cordova MD Jan 21, 2017 11:27
--- NOTE | 2017-01-21 11:40 | NUR ---
Social Work- Readiness for Discharge Data: EMR reviewed. Patient is on day 2 of hospitalization for E Coli and Pyelonephritis. Pt is currently ambulating in room. SW spoke with pt regarding PCP appointment at Residency Clinic. Pt agreeable to this. UR Specialist to make appointment. No discharge needs identified at this time. SW to continue to follow if any needs arise. Assessment: [place] Plan: Pt to receive Residency Clinic appointment prior to discharge. Pt to discharge home via POV. No additional discharge needs identified at this time. SW to continue to follow if any needs arise. Esha Vaughan, ADDICTIONS THERAPIST
--- NOTE | 2017-01-21 13:01 | NUR ---
Social Work- Discharge Data: EMR reviewed. Patient is on day 2 of hospitalization for E Coli and Pyelonephritis. Pt is currently ambulating in room. SW spoke with pt regarding PCP appointment at [facility]idency Clinic. Pt agreeable to this. UR Specialist to make appointment. SW to call patient with appointment information. Pt to discharge home with friend to transport via POV. No discharge needs. Assessment: [place]. Plan: Pt to receive Residency Clinic appointment prior to discharge. Pt to discharge home with friend to transport via POV. No additional discharge needs identified at this time. Esha Vaughan MSW
--- NOTE | 2017-01-21 13:19 | NUR ---
Scheduled hospital follow up appointment for 01/28/17 check in at 1020AM for 1030AM appointment with Updated CARDIOVASCULAR DISEASE SPECIALIST
--- NOTE | 2017-01-21 13:28 | NUR ---
Discharge Pt discharged at 1250 walking with friend to private vehicle. Pt pain controlled at 6/10 and premedicated prior to discharge. VSS, ZAVALA, A&O x 3. Home medications in drawer given to pt and previous antibiotic bottle disposed of in sharps. 1200 IV dose of antibiotics not given due to discharge and switch to PO medications. Pt has discharge instructions, care notes and new rx's. IV removed intact. Pt has all belongings and all questions answered.
== END 2017-01-21 12:50 | disposition home or self-care (01) | DRG 690 ==
LOC: SED 12:55 → OSC 14:30
PROVIDERS: ADMIT Internal Medicine; ATTEND Internal Medicine
DX: N12 Tubulo-interstitial nephritis, not specified as acute or chronic (principal); B96.20 Unspecified Escherichia coli [E. coli] as the cause of diseases classified elsewhere; G43.909 Migraine, unspecified, not intractable, without status migrainosus; F12.90 Cannabis use, unspecified, uncomplicated; F17.200 Nicotine dependence, unspecified, uncomplicated

== ENCOUNTER 2017-06-06 19:21 | Observation (INO) | payer OTHER ==
[~2017-06-06] VITALS: Ht 160 cm; Wt 76.7 kg
[~2017-06-06 19:21] MED LIST changes: +AMOX-366 PO; +BUTA1TAB52 PO; -CEFU500T61 PO; -SULF1TAB7 PO
[2017-06-06 19:24] VITALS: BP 119/69; PULSE 108; RESP 20; O2SAT 98
[2017-06-06 20:06] VITALS: BP 118/93; PULSE 103; RESP 18; O2SAT 100
[2017-06-06] MEDS ORDERED: Ondansetron 2 mg/mL 2 mL Inj IVPUSH PRN ×2 (20:20→23:15)
[2017-06-06 20:41] LABS: APPEARANCE,URINE HAZY (CLEAR,HAZY); COLOR,URINE YELLOW (YELLOW); OCCULT BLOOD,URINE TRACE (NEGATIVE); UROBILINOGEN,URINE 2 mg/dL (NORMAL)
--- NOTE | 2017-06-06 20:56 | ED.REPORT ---
HPI-Abd Pain F Under 40 Date of Service Jun 06, 2017 ED Provider: Gil Lopez MD Pt is a 31 year old female with a hx of pyelonephritis presenting to the ED complaining of bilateral "kidney pain" onset yesterday worsened today. Associated symptoms include fever, chills, headache, and dysuria. Denies any vomiting. She reports that her last normal menstrual period was the 26th of last month. Nursing Notes Stated Complaint: KIDNEY PAIN, FEVER, MIGRAINE Chief Complaint: General Complaint Nursing Notes Reviewed: Yes Allergies: Coded Allergies: ciprofloxacin (Verified Adverse Reaction, Unknown, Nausea,Vomiting, 06/06/17 ) PT DOES NOT KNOW REACTION Scheduled Amoxicillin/Clav K 875-125 mg (Augmentin 875-125 mg) 1 Each Tablet 1 TABLET PO BID Promethazine HCl (Phenergan) 25 Mg Supp.rect 25 MG RC TID Scheduled PRN Butalbital/Acetaminophen 50-325 mg (Butalbital/Acetaminophen 50-325 mg) 1 Each Tablet 1 TABLET PO Q8H PRN PRN For Headache Naproxen (Naprosyn) 500 Mg Tablet 500 MG PO BID PRN PRN For Pain Ondansetron ODT (Ondansetron ODT) 8 Mg Tab.rapdis 8 MG PO QID PRN PRN For Nausea General Time Seen by MD: 20:20 Chief Complaint Flank pain right, Flank pain left Hx Obtained From: Patient Arrived By: Walk-in Sudden in Onset?: Yes Onset Occurred: Yesterday Symptom Duration: Since onset Progression since Onset: Gradually worsening Location: : Flank left: Flank right Quality: Painful Severity: Current: Severe Severity: Maximum: Severe Recent Healthcare: No recent doctor visit, No recent hospitalization Similar Sx Previous: Yes Past Medical History Past Medical History Pneumothorax h/o UTI, pyelonephritis Migraines Past Surgical History none reported Smoking History Current Every Day Smoker Social History Alcohol Use: Denies alcohol use Drug Use: THC, Other Other Social History: Good social support, Local resident Ambulatory Status Independent Review of Systems Constitutional: Reports: Chills, Fever GI: Denies: Vomiting Female: Reports: Dysuria, Flank pain Complete sys rev & neg: except as marked. Neurologic: Reports: Headache Physical Exam Initial Vital Signs Vital Signs (First) Date Time Temp Pulse Resp B/P Pulse Ox O2 Delivery O2 Flow Rate FiO2 06/06/17 19:24 37.9 108 20 119/69 98 Room Air Initial VS: Reviewed Head / Eyes: Atraumatic, Normocephalic, PERRL Neck: Supple, Non-tender, Full range of motion Extremities: Vascular intact, Neuro intact, No swelling, No tenderness Skin: Warm, Dry, No cyanosis Neurologic: Alert, Oriented, Nonfocal Psychiatric: Mood/affect normal, Behavior normal, Normal thought content General/Constitutional: Awake, Alert, No acute distress Respiratory / Chest: Atraumatic, Breath sounds NL, Breath sounds = bilat, No respiratory distress Cardiovascular: Heart rate NL, Regular rhythm, Heart sounds NL, No gallop, No murmurs, No rubs Abdomen: Atraumatic, Soft, Non-tender Back: Atraumatic Bilateral CVA tenderness ENT: Atraumatic, Airway patent, Mucous membranes moist, Pharynx NL Interpretation & Diagnostics Urine negative. Lab Results Interpretation Result Diagram: 06/06/17 2100 06/06/17 2100 Test 06/06/17 20:22 06/06/17 20:26 06/06/17 21:00 Hold Urine Received (Received) Urine Color Yellow (YELLOW) Urine Appearance Hazy (CLEAR,HAZY) Urine pH 7.0 (5.0-8.0) Urine Specific [place] 1.010 (1.003-1.035) Urine Protein Negativemg/dL (NEG,TRACE) Urine Glucose (UA) Negativemg/dL (NEGATIVE) Urine Ketones Negativemg/dL (NEGATIVE) Urine Occult Blood Trace (NEGATIVE) Urine Nitrite Negative (NEGATIVE) Urine Bilirubin Negative (NEGATIVE) Urine Urobilinogen 2mg/dL (NORMAL) Urine Leukocyte Esterase Small (NEGATIVE) Urine RBC 0-2/hpf (0-2) Urine WBC 11-50/hpf (0-5) Urine Epithelial Cells Many/hpf (NONE-MOD) Urine Crystals None seen (NONE SEEN) Urine Bacteria Moderate/hpf (NONE-FEW) Urine Hyaline Casts None/lpf (NONE) Urine Granular Casts None seen (NONE SEEN) Urine Waxy Casts None seen (NONE SEEN) Urine Red Blood Cell Casts None seen (NONE SEEN) Urine White Blood Cell Casts None seen (NONE SEEN) Urine Mucus None seen (None Seen) Urine Trichomonas None seen (NONE SEEN) Urine Yeast None (NONE SEEN) Urinalysis Comment None Urine Culture Reflexed Indicated White Blood Count 11.9th/mm3 (3.8-10.1) Red Blood Count 4.47mil/mm3 (3.90-5.20) Hemoglobin 13.6g/dL (12.0-15.6) Hematocrit 39.3% (35.0-46.0) Mean Corpuscular Volume 87.9fL (81-100) Mean Corpuscular Hemoglobin 30.4pg (27.0-35.0) Mean Corpuscular Hemoglobin Concent 34.6% (32.0-37.0) Red Cell Distribution Width 12.4% (12.3-15.4) Platelet Count 228bil/L (150-400) Neutrophils (%) (Auto) 80.9% (40-74) Lymphocytes (%) (Auto) 10.0% (14-46) Monocytes (%) (Auto) 8.4% (4-12) Eosinophils (%) (Auto) 0.3% (0-5) Basophils (%) (Auto) 0.2% (0-3) Sodium Level 131mEq/L (134-144) Potassium Level 3.9mEq/L (3.5-5.2) Chloride Level 94mEq/L (97-108) Carbon Dioxide Level 22mmol/L (18-29) Blood Urea Nitrogen 9mg/dL (6-20) Creatinine 0.62mg/dL (0.57-1.00) Estimat Glomerular Filtration Rate 160mL/min (>59) Glucose Level 114mg/dL (60-99) Calcium Level 8.8mg/dL (8.5-10.1) Magnesium Level 1.9mg/dL (1.6-2.6) Total Bilirubin 0.5mg/dL (0.0-1.2) Aspartate Amino Transf (AST/SGOT) 16U/L (0-50) Alanine Aminotransferase (ALT/SGPT) 13U/L (0-32) Alkaline Phosphatase 76U/L (25-150) Total Protein 7.2g/dL (6.4-8.4) Albumin 3.9g/dL (3.4-5.0) Lipase 17U/L (13-60) Hold [place] Top Tube Received (Received) Re-Eval/Medical Decision Med Decision/Clinical Course Med Decision/Clinical Course: IV fluids, Zofran, Toradol and Dilaudid for pain. Blood and urine cultures have been obtained and Rocephin 2 g IV given. Discussed admission versus discharge and outpatient antibiotics, patient is worried that she will not improve at home and states last time she returned 24 hours after discharge from the emergency department sicker and required admission. We will admit to hospitalist service. Re-Evaluation/Progress : Time of Eval: 22:51 Patient Status: Condition improved Re-Evaluation/Progress Note: Discussed lab results and plan for admission. Pt understands and agrees with plan. Consultation : Referral / Consult Name: Leida Em DO Call Returned at: 23:05 Ironing Machine Operator: Will see patient, Agrees with plan, Accepts admit Counseled Regarding: Diagnosis, Lab results, Need for admission Discharge & Departure Primary Impression: Pyelonephritis Disposition: ADMITTED TO HOSPITAL Discharge Condition All VS Reviewed: Yes Condition: Improved Referrals: NOPCP (PCP) Babs Attestation Portions of this note were transcribed by Purnima Zelaya. I, Dr. Lopez personally performed the history, physical exam and medical decision-making; I reviewed and confirmed the accuracy of the information in the transcribed note. Signed by : Babs Caceres, 06/06/2017. Gil Lopez MD Jun 06, 2017 20:56 PURNIMA ZELAYA Jun 06, 2017 20:59
[2017-06-06 21:08] LABS: BASOPHILS % (AUTO) 0.2 % (0-3); EOSINOPHILS % (AUTO) 0.3 % (0-5); MONOCYTES % (AUTO) 8.4 % (4-12); Mean Corpuscular Hemoglobin 30.4 pg (27.0-35.0); Mean Corpuscular Volume 87.9 fL (81-100); NEUTROPHILS % (AUTO) 80.9 % (40-74); Platelet Count 228 bil/L (150-400)
[2017-06-06 21:10] VITALS: BP 131/80; PULSE 96; RESP 22; O2SAT 99
[2017-06-06 21:31] LABS: Magnesium 1.9 mg/dL (1.6-2.6)
[2017-06-06] MEDS ORDERED: cefTRIAXone Inj 2,000 MG in Dextrose 5% Minibag Plus 50 ML IV ONE (22:05)
[2017-06-06] MEDS ORDERED: 0.9% Sodium Chloride 1,000 ML IV ONE (22:55)
[2017-06-06 23:11] VITALS: BP 97/49; PULSE 82; RESP 20; O2SAT 97
[2017-06-06] MEDS ORDERED: Alum-Mag Hydrox-Simeth 30 mL Suspension PO PRN (23:15)
[2017-06-06 23:34] VITALS: BP 100/66; PULSE 68; RESP 16; O2SAT 97
[2017-06-07] MEDS ORDERED: Alum-Mag Hydrox-Simeth 30 mL Suspension PO PRN (00:40)
[2017-06-07] MEDS ORDERED: Polyethylene Glycol (PEG) 17 Gm Powder PO PRN (00:40)
--- NOTE | 2017-06-07 00:46 | PCM.HPMED ---
Subjective Date of Service Jun 07, 2017 Primary Provider: Admitting Physician: Leida Em DO Primary Care Physician: August Attending Physician: Leida Em DO Admit Status: From the Emergency Department Chief Complaint: flank pain History of Present Illness: 31yoF with past medical history of pyelonephritis that is admitted for the same. On admission patient refuses to participate in interview stating the reason she came in is because of her kidneys but does not wish to discuss her concerns. HPI as per ED note. "Pt is a 31 year old female with a hx of pyelonephritis presenting to the ED complaining of bilateral "kidney pain" onset yesterday worsened today. Associated symptoms include fever, chills, headache, and dysuria. Denies any vomiting. She reports that her last normal menstrual period was the of last month." Review of Systems: unable to obtain review of systems as patient refuses to participate with interview. Allergies Coded Allergies: ciprofloxacin (Verified Adverse Reaction, Unknown, Nausea,Vomiting, 06/06/17 ) PT DOES NOT KNOW REACTION Home Medications Unable to obtain from patient PMH Per EMR review "collapsed lung" requiring chest tube frequent infection, previous admission for pyelonephritis Surgical History None Family History parents are alive and well, no known medical issues - per EMR review, patient unable to give any information on admission Social History Hx Alcohol Use: No Hx Substance Use: Yes (marijuana few times a week) Hx Tobacco Use: Yes (a half to 1 pack per day) Smoking Status: Current Every Day Smoker Exam Vital Signs Vital Sign - Last Date Time Temp Pulse Resp B/P Pulse Ox O2 Delivery O2 Flow Rate FiO2 06/06/17 23:34 36.8 68 16 100/66 97 Room Air Intake and Output 06/06/17 06/06/17 06/07/17 Cumulative From/Thru 15:00 23:00 07:00 06/06/17 19:24 - 06/06/17 23:38 Intake Total 1199 ml 1199 ml Balance 1199 ml 1199 ml Intake Oral 200 ml 200 ml IV Total 999 ml 999 ml Exam General: sleepy easily arousable, No acute Distress Eyes: PERRLA, Scleral Anicteric Mouth: Mouth Normal, Mucous Membranes Moist/[place] Neck: Supple, no Thyromegaly, trachea central. Chest & Lungs: Clear to auscultation & percussion, No adventitious breath sounds, no crackles, no wheeze Cardiovascular: Normal S1, Normal S2, No Murmurs/Rubs/Gallops, Regular Rate/ Rhythm Pulses: Radial (present and equal), Dorsalis Pedi (present and equal) Abdomen: Soft, tender , Non-distended, Normoactive bowel tones. Musculoskeletal: Unremarkable. Normal range of motion, no swollen or erythematous joints Extremities: No edema, no cyanosis, no clubbing. Skin: No rashes. Warm and dry, no erythematous areas Neurological: Grossly neurologically intact, Normal Speech, Sensation Intact Lymphatic: Lymph nodes Cervical and Axillary not palpable. Lab and Diagnostics Result Diagram: 06/06/17 2100 06/06/172099 Assessment & Plan 31yoF with past medical history of pyelonephritis that is admitted for the same. Sepsis, acute, POA -secondary to pyelonephritis -HR>90, WBC 11.9, RR>20 -treatment as below Pyelonephritis, acute, POA -patient with history of pyelonephritis most recently admitted 01/2017 with left pyelo, culture results with e. coli treated with ceftriaxone -ceftriaxone started in ED, will continue at this time -CT KUB in am. test negative as per ED physician Hyponatremia, acute, POa -mild -repeat labs in am Elevated glucose, acute, POA -hgbA1c added on to admit labs Patient is admitted under observation status and will require less than 2 midnight hospitalization. Pain Evaluation: Adequate Pain Control VTE Prophylaxis: Sub-Q Heparin (Unfractionated) Resuscitation Status: CPR: Attempt Resuscitation Leida Em DO Jun 07, 2017 00:46
[2017-06-07] MEDS: 0.9% Sodium Chloride 1,000 ML IV SCH ×3 (01:12→21:32)
--- NOTE | 2017-06-07 01:41 | NUR ---
Admit received report from Clarisa MCCULLOUGH RN @ 23:10 awaiting orders to release to floor Dx Pyelonephritis, which was last admit in January this year.Arrived floor 2325 via [facility] accompanied by S/O, patient ambulated to bed after weighing but only interest was getting something to snack on and going to sleep,hard to get to engage in conversation, seems extremely drowsy though not getting any narcotics in ER,admission completed from recall in January patient states no new events since then, MD came to assess but again patient not wanting to engage in conversation, gave patient water crackers per request, IVF hung/running to have KUB today
[2017-06-07 05:57] VITALS: BP 124/69; PULSE 111; RESP 20; O2SAT 96
[2017-06-07] MEDS ORDERED: no home medications (07:49)
[2017-06-07 07:50] LABS: BASOPHILS % (AUTO) 0.1 % (0-3); EOSINOPHILS % (AUTO) 0.1 % (0-5); MONOCYTES % (AUTO) 9.3 % (4-12); Mean Corpuscular Hemoglobin 30.2 pg (27.0-35.0); Mean Corpuscular Volume 90.7 fL (81-100); NEUTROPHILS % (AUTO) 84.2 % (40-74); Platelet Count 183 bil/L (150-400)
[2017-06-07] MEDS: Heparin 5,000 Unit/mL Inj SUBQ SCH ×2 (07:55→16:59)
--- NOTE | 2017-06-07 10:03 | DRSVH ---
PROCEDURE: CT KUB ([id number]) INDICATIONS: nephrolithiasis? TECHNIQUE: Noncontrast 5 mm thick sections acquired from the diaphragms to the symphysis. 5 mm thick coronal an d sagittal reformats were then performed. For radiation dose reduction, the following was used: aut omated exposure control, adjustment of mA and/or kV according to patient size. COMPARISON: [facility], CT, CT KUB, 01/19/2017, 13:57. FINDINGS: Image quality: Excellent. Lung bases: Lung bases are clear. Heart size is normal. Urinary system: Both kidneys are normal in size but there has been resolution of a small degree of p erirenal edema on the left inferiorly and interval development of a similar degree of slight perirena l edema on the right inferiorly. No kidney stones. No hydronephrosis or perinephric fat stranding. Both ureters appear non-dilated throughout their expected courses. Bladder wall thickness is normal ; no calcified bladder stones. Other solid organs: Liver and spleen are normal in size. Gallbladder appears normal. Pancreas is n ormal in contours. No adrenal nodules. Peritoneum and bowel: Unenhanced bowel loops demonstrate normal wall thickness and caliber. No free fluid or air. Nodes and vessels: No retroperitoneal or mesenteric adenopathy by size criteria. Aorta and inferior vena cava are normal in caliber. Abdominal wall: No ventral hernias. Pelvis: No free pelvic fluid. No inguinal hernias or adenopathy. Anteverted uterus, IUD in central position Bones: No suspicious bony lesions. No vertebral body compression fractures. IMPRESSION: No urinary tract stone is seen. Slight edema is present adjacent to the inferior pole of the right kidney, a finding which can indicate presence of mild pyelonephritis. The kidney itself i s not enlarged and no collecting system distention is present. Dictated by: Chandrakant Ramirez M.D. on 06/07/2017 at 9:58 Approved by: Chandrakant Ramirez M.D. on 06/07/2017 at 10:01
[2017-06-07 10:31] VITALS: BP 101/65; PULSE 102; RESP 18; O2SAT 98
[2017-06-07] MEDS: HYDROmorphone 1 mg/mL Inj IVPUSH PRN ×2 (14:05→21:32)
[2017-06-07 14:18] VITALS: BP 116/73; PULSE 102; RESP 16; O2SAT 96
--- NOTE | 2017-06-07 15:23 | NUR ---
Pain/Temp Patient reports flake pain and headache 08/12. Pt declines IV morphine, states it causes "head to hurt worse". Hospitalist informed and order for IV Dilaudid received. Pt reports pain improved after receiving Dilaudid, now "tolerable". Pt febrile, 38.2. Hospitalist made aware, and Tylenol given.
[2017-06-07 17:32] VITALS: BP 96/61; PULSE 70; RESP 16; O2SAT 97
[2017-06-07] MEDS: cefTRIAXone Inj 1,000 MG in Dextrose 5% Minibag Plus 50 ML IV SCH (21:36)
[2017-06-07 21:44] VITALS: BP 104/70; PULSE 80; RESP 17; O2SAT 96
[2017-06-08] MEDS: Heparin 5,000 Unit/mL Inj SUBQ SCH ×3 (00:33→16:39)
[2017-06-08] MEDS: HYDROmorphone 1 mg/mL Inj IVPUSH PRN ×5 (02:25→21:06)
--- NOTE | 2017-06-08 06:02 | NUR ---
Shift note Continues w/low grade fever and c/o of "kidney pin" alternating Dilaudid and Tylenol w/effect, does not like morphine
[2017-06-08 06:17] VITALS: BP 96/62; PULSE 89; RESP 18; O2SAT 96
[2017-06-08] MEDS: 0.9% Sodium Chloride 1,000 ML IV SCH ×2 (07:31→18:37)
[2017-06-08 07:44] VITALS: BP 111/71; PULSE 89; RESP 16; O2SAT 96
[2017-06-08 08:56] LABS: Mean Corpuscular Hemoglobin 29.7 pg (27.0-35.0); Mean Corpuscular Volume 90.7 fL (81-100)
[2017-06-08 08:57] LABS: BASOPHILS % (AUTO) 0.1 % (0-3); EOSINOPHILS % (AUTO) 0.2 % (0-5); MONOCYTES % (AUTO) 9.1 % (4-12); NEUTROPHILS % (AUTO) 82.5 % (40-74); Platelet Count 175 bil/L (150-400)
--- NOTE | 2017-06-08 12:02 | PCM.PNMED ---
Subjective Date of Service Jun 08, 2017 Subjective Right flank pain improving. Continues to have fever. Exam Vital Signs Vital Sign - Last Date Time Temp Pulse Resp B/P Pulse Ox O2 Delivery O2 Flow Rate FiO2 06/08/17 07:44 37.4 89 16 111/71 96 Room Air Intake and Output 06/07/17 06/07/17 06/08/17 Cumulative From/Thru 15:00 23:00 07:00 06/06/17 19:24 - 06/08/17 06:15 Intake Total 1572 ml 1719 ml 5296 ml Output Total 1200 ml 1100 ml 2700 ml Balance 372 ml 619 ml 2596 ml Intake Oral 640 ml 440 ml 1520 ml IV Total 932 ml 1279 ml 3776 ml Output Urine Total 1200 ml 1100 ml 2700 ml Exam General: Alert, No acute Distress Eyes: PERRLA, Scleral Anicteric Mouth: Mouth Normal, Mucous Membranes Moist/[place] Neck: Supple, no Thyromegaly, trachea central. Chest & Lungs: Clear to auscultation & percussion, No adventitious breath sounds, no crackles, no wheeze Cardiovascular: Normal S1, Normal S2, No Murmurs/Rubs/Gallops, Regular Rate/ Rhythm Pulses: Radial (present and equal), Dorsalis Pedi (present and equal) Abdomen: Soft, tender , Non-distended, Normoactive bowel tones. right CVAT Musculoskeletal: Unremarkable. Normal range of motion, no swollen or erythematous joints Extremities: No edema, no cyanosis, no clubbing. Skin: No rashes. Warm and dry, no erythematous areas Neurological: Grossly neurologically intact, Normal Speech, Sensation Intact Lymphatic: Lymph nodes Cervical and Axillary not palpable. IVs and Medications Medications Reviewed: Medications were reviewed in detail Lab and Diagnostics Result Diagram: 06/08/1784406/08/1745 X-Rays, CTs and MRIs PROCEDURE: CT KUB ([id number]) INDICATIONS: nephrolithiasis? IMPRESSION: No urinary tract stone is seen. Slight edema is present adjacent to the inferior pole of the right kidney, a finding which can indicate presence of mild pyelonephritis. The kidney itself is not enlarged and no collecting system distention is present. Dictated by: Chandrakant Ramirez M.D. on 06/07/2017 at 9:58 Assessment & Plan 31yoF with past medical history of pyelonephritis that is admitted for the same. # Sepsis, acute, POA -secondary to pyelonephritis -HR>90, WBC 11.9, RR>20 -treatment as below -Blood culture negative x2, urine culture growing Escherichia coli -Continue ceftriaxone # Pyelonephritis, acute, POA -patient with history of pyelonephritis most recently admitted 01/2017 with left pyelo, culture results with e. coli treated with ceftriaxone -ceftriaxone started in ED, will continue at this time -CT KUB consistent with right pyelonephritis test negative as per ED physician Blood culture negative x2, urine culture growing Escherichia coli #1 Hyponatremia, acute, POa -mild inPatient full code Possible discharge tomorrow if afebrile for 24h VTE Prophylaxis: Sub-Q Heparin (Unfractionated) Resuscitation Status: CPR: Attempt Resuscitation Leno Cordova MD Jun 08, 2017 12:01
[2017-06-08 14:57] VITALS: BP 98/65; PULSE 69; RESP 16; O2SAT 96
--- NOTE | 2017-06-08 17:48 | NUR ---
Social Work: Screening/Multidisciplinary Rounds D: EMR reviewed. Pt is a 31 y/o female admitted for phyelonephritis per H&P. Pt's insurance is [employer]. Pt gave verbal consent to contact SO for discharge planning (Tyron Bowles [phone]). Pt lives at home with her SO in [place]. SW met with pt to discuss PCP. Pt requested SW to schedule new PCP appointment at [facility]. SW to notify Intellectual Property Manager to schedule appointment when [facility] opens tomorrow. Pt's SO will provide transport home when pt is medically stable for discharge. SW provided DPOA/advanced directive ppw and encouraged pt to provide the hospital with a copy once complete. Pt discussed in multidisciplinary rounds - no SW needs identified, no MD orders received. Pt likely to remain hospitalized for 2-3 more days. MD stated there are no SW needs. Pt to discharge on POABX. SW will continue to follow. A: Pt who is independent at baseline. Capacity for self-care discussed in multidisciplinary rounds - no concerns identified. P: Pt anticipated to discharge in 2-3 days on POABX with SO to transport via POV. No SW needs identified, no MD orders received. SW will continue to follow for needs. KAMILAH Gurrola
[2017-06-08 18:20] VITALS: BP 103/62; PULSE 80; RESP 20; O2SAT 97
[2017-06-08] MEDS: cefTRIAXone Inj 1,000 MG in Dextrose 5% Minibag Plus 50 ML IV SCH (22:39)
[2017-06-09] MEDS: Heparin 5,000 Unit/mL Inj SUBQ SCH ×2 (00:12→08:49)
[2017-06-09] MEDS: HYDROmorphone 1 mg/mL Inj IVPUSH PRN ×2 (01:10→05:04)
[2017-06-09 01:25] VITALS: BP 100/62; PULSE 83; RESP 16; O2SAT 95
--- NOTE | 2017-06-09 03:45 | NUR ---
Pain Pt reporting 6-7/10 flank pain with every assessment. Reports "some" temporary relief with dilaudid and tylenol between doses. Requests pain medication before it is due, requires it exactly on schedule. Ambulating to restroom with steady gait. Boyfriend at bedside. Frequent rounding continues.
[2017-06-09] MEDS: 0.9% Sodium Chloride 1,000 ML IV SCH (04:46)
[2017-06-09 06:18] LABS: Mean Corpuscular Hemoglobin 29.9 pg (27.0-35.0); Mean Corpuscular Volume 91 fL (81-100)
[2017-06-09 06:19] LABS: BASOPHILS % (AUTO) 0.1 % (0-3); EOSINOPHILS % (AUTO) 1 % (0-5); MONOCYTES % (AUTO) 11.6 % (4-12); NEUTROPHILS % (AUTO) 65.2 % (40-74); Platelet Count 171 bil/L (150-400)
--- NOTE | 2017-06-09 07:51 | NUR ---
Pain In prep for possible discharge requested, from MD, PO pain rx for transition
[2017-06-09] MEDS ORDERED: oxyCODONE-Acetamin 5-325 mg Tablet PO PRN (07:55)
[2017-06-09 08:50] VITALS: BP 96/61; PULSE 73; RESP 18; O2SAT 97
--- NOTE | 2017-06-09 09:13 | PCM.DIMED ---
Discharge Instructions Date of Service Jun 09, 2017 Dates of Hospitalization Jun 06, 2017 at 23:06 Discharge Diagnosis Discharge Diagnosis # Sepsis, acute, POA # Right Pyelonephritis, acute, POA Diet Discharge Diet: No restrictions Activity Discharge Activity: No restrictions Call your provider Call your provider for: Fever or Chills, Shortness of breath, Bleeding, Chest pain, Vomitting, Excessive diarrhea, Weakness (unilateral) Patient Instructions Patient Instructions You were hospitalized due to pyelonephritis/right kidney infection.you were treated with IV antibiotics. Urine culture grows Escherichia coli. Please continue Augmentin for 7 days. Please get a PCP and follow-up. Follow-up with PCP in: 2 weeks Leno Cordova MD Jun 09, 2017 09:13
[2017-06-09] MEDS ORDERED: OXYC1TAB24 PO (09:14)
[2017-06-09] MEDS ORDERED: AMOX-366 PO (09:14)
--- NOTE | 2017-06-09 11:14 | NUR ---
Discharge Reviewed DC instructions with patient and family. Stated understanding. Hard script in folder Pt ambulated to private vehicle to home with family.
--- NOTE | 2017-06-09 12:33 | PCM.DC.MED ---
Discharge Summary Date of Service Jun 09, 2017 Dates of Hospitalization Date of Hospital Admission Jun 06, 2017 at 23:06 Date of Discharge: Jun 09, 2017 Providers: Admitting Physician: Leida Em DO Primary Care Physician: August Attending Physician: Leno Cordova MD Diagnosis at Time of Discharge Diagnosis at Time of Discharge # Sepsis, acute, POA # Right Pyelonephritis, acute, POA Procedures XRay, CTs & MRIs PROCEDURE: CT KUB ([id number]) INDICATIONS: nephrolithiasis? IMPRESSION: No urinary tract stone is seen. Slight edema is present adjacent to the inferior pole of the right kidney, a finding which can indicate presence of mild pyelonephritis. The kidney itself is not enlarged and no collecting system distention is present. Dictated by: Chandrakant Ramirez M.D. on 06/07/2017 at 9:58 Brief History per HPI 31yoF with past medical history of pyelonephritis that is admitted for the same. On admission patient refuses to participate in interview stating the reason she came in is because of her kidneys but does not wish to discuss her concerns HPI as per ED note. "Pt is a 31 year old female with a hx of pyelonephritis presenting to the ED complaining of bilateral "kidney pain" onset yesterday worsened today. Associated symptoms include fever, chills, headache, and dysuria. Denies any vomiting. She reports that her last normal menstrual period was the 26th of last month. Hospital Course 31yoF with past medical history of pyelonephritis that is admitted for the same. # Sepsis, acute, POA -secondary to pyelonephritis -initial HR>90, WBC 11.9, RR>20 -Blood culture negative x2, urine culture growing Escherichia coli pansensitive -Treated with ceftriaxone. Discharge on Augmentin for 7 more days # Pyelonephritis, acute, POA -patient with history of pyelonephritis most recently admitted 01/2017 with left pyelo, culture results with e. coli treated with ceftriaxone -Treated with ceftriaxone. Discharge on Augmentin for 7 more days -CT KUB consistent with right pyelonephritis test negative as per ED physician Blood culture negative x2, urine culture growing Escherichia coli Patient has no PCP. Advised her to get a PCP and urology eval for recurrent pyelonephritis #1 Hyponatremia, acute, resolved -mild Discharged home Condition at discharge stable Exam Vital Signs (Last) Date Time Temp Pulse Resp B/P Pulse Ox O2 Delivery O2 Flow Rate FiO2 06/09/17 08:50 37.1 73 18 96/61 97 Room Air Exam General: Alert, No acute Distress Eyes: PERRLA, Scleral Anicteric Mouth: Mouth Normal, Mucous Membranes Moist/[place] Neck: Supple, no Thyromegaly, trachea central. Chest & Lungs: Clear to auscultation & percussion, No adventitious breath sounds, no crackles, no wheeze Cardiovascular: Normal S1, Normal S2, No Murmurs/Rubs/Gallops, Regular Rate/ Rhythm Pulses: Radial (present and equal), Dorsalis Pedi (present and equal) Abdomen: Soft, tender , Non-distended, Normoactive bowel tones. right CVAT Musculoskeletal: Unremarkable. Normal range of motion, no swollen or erythematous joints Extremities: No edema, no cyanosis, no clubbing. Skin: No rashes. Warm and dry, no erythematous areas Neurological: Grossly neurologically intact, Normal Speech, Sensation Intact Lymphatic: Lymph nodes Cervical and Axillary not palpable. Test 06/06/17 20:22 06/06/17 20:26 06/06/17 21:00 06/07/17 00:00 Hold Urine Received (Received) Urine Color Yellow (YELLOW) Urine Appearance Hazy (CLEAR,HAZY) Urine pH 7.0 (5.0-8.0) Urine Specific [place] 1.010 (1.003-1.035) Urine Protein Negativemg/dL (NEG,TRACE) Urine Glucose (UA) Negativemg/dL (NEGATIVE) Urine Ketones Negativemg/dL (NEGATIVE) Urine Occult Blood Trace (NEGATIVE) Urine Nitrite Negative (NEGATIVE) Urine Bilirubin Negative (NEGATIVE) Urine Urobilinogen 2mg/dL (NORMAL) Urine Leukocyte Esterase Small (NEGATIVE) Urine RBC 0-2/hpf (0-2) Urine WBC 11-50/hpf (0-5) Urine Epithelial Cells Many/hpf (NONE-MOD) Urine Crystals None seen (NONE SEEN) Urine Bacteria Moderate/hpf (NONE-FEW) Urine Hyaline Casts None/lpf (NONE) Urine Granular Casts None seen (NONE SEEN) Urine Waxy Casts None seen (NONE SEEN) Urine Red Blood Cell Casts None seen (NONE SEEN) Urine White Blood Cell Casts None seen (NONE SEEN) Urine Mucus None seen (None Seen) Urine Trichomonas None seen (NONE SEEN) Urine Yeast None (NONE SEEN) Urinalysis Comment None Urine Culture Reflexed Indicated Hemoglobin A1c 5.4% (4.8-5.6) Magnesium Level 1.9mg/dL (1.6-2.6) Lipase 17U/L (13-60) Hold [place] Top Tube Received (Received) Urine Opiates Screen Negative Urine Methadone Screen Negative Urine Barbiturates Screen Negative Urine Amphetamines Screen Negative Urine Benzodiazepines Screen Negative Urine Cocaine Metabolite Screen Negative Urine Cannabinoids Screen Negative Test 06/08/17 08:45 06/09/17 05:40 Procalcitonin 0.14ng/mL (0.00-0.08) White Blood Count 7.7th/mm3 (3.8-10.1) Red Blood Count 3.74mil/mm3 (3.90-5.20) Hemoglobin 11.2g/dL (12.0-15.6) Hematocrit 34.0% (35.0-46.0) Mean Corpuscular Volume 91fL (81-100) Mean Corpuscular Hemoglobin 29.9pg (27.0-35.0) Mean Corpuscular Hemoglobin Concent 32.9% (32.0-37.0) Red Cell Distribution Width 12.3% (12.3-15.4) Platelet Count 171bil/L (150-400) Neutrophils (%) (Auto) 65.2% (40-74) Lymphocytes (%) (Auto) 22.1% (14-46) Monocytes (%) (Auto) 11.6% (4-12) Eosinophils (%) (Auto) 1% (0-5) Basophils (%) (Auto) 0.1% (0-3) Sodium Level 140mEq/L (134-144) Potassium Level 4.1mEq/L (3.5-5.2) Chloride Level 104mEq/L (97-108) Carbon Dioxide Level 24mmol/L (18-29) Blood Urea Nitrogen 6mg/dL (6-20) Creatinine 0.44mg/dL (0.57-1.00) Estimat Glomerular Filtration Rate 237mL/min (>59) Glucose Level 110mg/dL (60-99) Calcium Level 7.8mg/dL (8.5-10.1) Total Bilirubin 0.2mg/dL (0.0-1.2) Aspartate Amino Transf (AST/SGOT) 8U/L (0-50) Alanine Aminotransferase (ALT/SGPT) 8U/L (0-32) Alkaline Phosphatase 67U/L (25-150) Total Protein 5.5g/dL (6.4-8.4) Albumin 3.2g/dL (3.4-5.0) Microbiology Results [facility] CULT URINE Final 06/08/17-840 Organism 1 ESCHERICHIA COLI U COLONY COUNT/QUANTITY >100,000 CFU/ml Cefazolin-predicts results for the oral agents, cefaclor,cefdinir, cefpodoximen, cefprozil, cefuroximne axetil, cephalexin and loracarbed when used for therapy of uncomplicated UTI's due to E. coli, K. pneumoniae, and Proteus mirabilis. Cefpodoxime, cefdinir and cefuroxime axetil may be tested individually because some isolates may be susceptible to these agents while testing resistant to cefazolin. (CLSI F142-W28 pg 53) 1. ESCHERICHIA COLI M.I.C Interp --------- ------ * AMOXICILLIN/CLAVULATE 4 S * AMPICILLIN >=32 R * CEFAZOLIN (CEPHALOSPORIN) UTI 4 S * CEFEPIME <=1 S * CEFTRIAXONE <=1 S * CEFUROXIME SODIUM 4 S * CIPROFLOXACIN <=0.25 S * ERTAPENEM <=0.5 S * GENTAMICIN <=1 S * IMIPENEM <=1 S * LEVOFLOXACIN <=0.12 S * NITROFURANTOIN <=16 S * TETRACYCLINE <=1 S * TOBRAMYCIN <=1 S * TRIMETHOPRIM/SULFAMETHOXAZOLE >=320 R Discharge Medications Discharge Medications Amoxicillin/Clav K 875-125 mg (Augmentin 875-125 mg) 1 Each Tablet 1 TABLET PO BID Prescribed by: LENO CORDOVA MD As needed oxyCODONE-Acetaminophen 5-325 mg (oxyCODONE-Acetaminophen 5-325 mg) 1 Each Tablet 1 TAB PO Q6H PRN PRN For Pain Prescribed by: LENO CORDOVA MD Followup Plan Disposition: Home Discharge Diet: No restrictions Discharge Activity: No restrictions Patient Instructions You were hospitalized due to pyelonephritis/right kidney infection.you were treated with IV antibiotics. Urine culture grows Escherichia coli. Please continue Augmentin for 7 days. Please get a PCP and follow-up. Follow-up with PCP in: 2 weeks Time spent 25 minutes Leno Cordova MD Jun 09, 2017 12:33
--- NOTE | 2017-06-09 15:57 | NUR ---
POST HOSPITAL FOLLOW UP: Scheduled post [facility] 06/16/17 check in at 845AM for 9Am appointment with
--- NOTE | 2017-06-09 16:25 | NUR ---
Social Work Note: Discharge Data& Assessment: Per MD pt is medically ready to discharge home via POV. Julisa Dolan is a 31 year old female admitted on 06/06/2017 for phyelonephritis. Per MD pt is medically improved and ready to discharge home. Pt ambulating independently and independent with self care during this hospitalization. [facility] appointment scheduled for 06[facility]16/17 check in at 845AM for 9Am appointment with . Pt S/O providing transportation home via POV. No other MD orders or pt needs identified. All updated and agreeable to plan. Plan: Per pt is medically ready to discharge home via POV with [facility] the [facility] on 06/16/2017 at 845am. No other MD orders or pt needs identified. All updated and agreeable to plan. KAMILAH Olivares
== END 2017-06-09 10:50 | disposition home or self-care (01) ==
LOC: SED 19:21 → MOC 23:06
PROVIDERS: ADMIT Internal Medicine; ATTEND Internal Medicine
DX: A41.51 Sepsis due to Escherichia coli [E. coli] (principal); N10 Acute pyelonephritis; B96.20 Unspecified Escherichia coli [E. coli] as the cause of diseases classified elsewhere; E87.1 Hypo-osmolality and hyponatremia; R73.9 Hyperglycemia, unspecified; F17.210 Nicotine dependence, cigarettes, uncomplicated; F12.90 Cannabis use, unspecified, uncomplicated; Z87.440 Personal history of urinary (tract) infections; Z86.69 Personal history of other diseases of the nervous system and sense organs
CPT/HCPCS: 36415; 74176; 80053; 81000; 81025; 83036; 83690; 83735; 84145; 85025; 87040; 87077; 87086; 87088; 87186; 96361; 96365; 96366; 96372; 96375; 96376; 99285; G0378; G0480; J0696; J1170; J1644; J1885; J2405; J7030